=== PATIENT | male | born 1975 | race Hispanic/Latino ===

== ENCOUNTER → 2025-01-01 | Outpatient (CLI) | payer BC ==
[~2025-01-01] MED LIST: IOHEXOL-350 75 ML VIAL IV ONE
--- NOTE | 2025-01-01 12:59 | HMCIMG ---
CT ABDOMEN/PELVIS W/CONTRAST HISTORY: Lower abdominal pain COMPARISON: None TECHNIQUE: Multiple sequential axial images of the abdomen and pelvis were obtained from the dome of the diaphragm through symphysis pubis. Patient was given 75 cc of Omnipaque through intravenous route. Oral contrast was not given. FINDINGS: No pleural effusion is seen bilaterally. There is no evidence of parenchymal disease or pulmonary nodule of the visualized lower lungs. Degenerative changes of the thoracolumbar spine are present. The heart is not enlarged. Postop changes are seen at L4-L5 with orthopedic fixation plates and screws. The liver, spleen, adrenal glands and pancreas are unremarkable. No hydronephrosis is seen on the right. There is mild left hydronephrosis and left hydroureter due to large soft tissue mass in the sigmoid colon measuring 4.2 cm in cross-sectional dimension suspicious for sigmoid colon cancer. There is adjacent fat stranding may be related to superimposed diverticulitis. No focal abscess is seen at this time. Colonoscopy correlation is recommended. No evidence of renal stone is seen. Fecal material is seen in the colon. There are normal size retroperitoneal and mesenteric lymph nodes. No ascites is seen. No CT evidence of acute appendicitis is seen. Pelvic sidewalls are symmetric bilaterally. Bladder is well distended without wall thickening. IMPRESSION: 1. There is mild left hydronephrosis and left hydroureter due to large soft tissue mass in the sigmoid colon measuring 4.2 cm in cross-sectional dimension suspicious for sigmoid colon cancer. There is adjacent fat stranding may be related to superimposed diverticulitis. No focal abscess is seen at this time. Colonoscopy correlation is recommended. CT was performed with one or more following dose reduction techniques: automated exposure control, adjustment of the mA and kv according to patient's size, or use of a iterative reconstruction technique.
== END | disposition home or self-care (01) ==
LOC: RAH 11:05
PROVIDERS: ATTEND Internal Medicine
DX: K63.89 Other specified diseases of intestine (principal); N13.30 Unspecified hydronephrosis; R10.30 Lower abdominal pain, unspecified; M47.815 Spondylosis without myelopathy or radiculopathy, thoracolumbar region
CPT/HCPCS: 74177; Q9967